=== PATIENT | female | born 2000 | race Caucasian/White ===

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

== ENCOUNTER 2018-01-29 16:04 | Emergency (ER) | payer BC ==
[~2018-01-29] VITALS: Ht 167.6 cm; Wt 69.0 kg
[~2018-01-29 16:04] MED LIST: ALPR-411 PO; LORA-741 PO; SODI1GRA11 PO; TRAZ50TA35 PO
[2018-01-29 16:11] VITALS: TEMP 36.8; Ht 167.6 cm; Wt 69.0 kg
[2018-01-29] MEDS ORDERED: SODIUM CHLORIDE 0.9% 1000ML 1,000 ML IV STA (17:16)
[2018-01-29] MEDS ORDERED: BCPILLS PO (17:27)
[2018-01-29] MEDS ORDERED: NITR-5 PO (17:27)
[2018-01-29] MEDS ORDERED: FLUC150T PO (17:27)
[2018-01-29] MEDS ORDERED: METR0.7527 PV (17:27)
[2018-01-29] MEDS ORDERED: SERT50TA PO (17:27)
[2018-01-29 17:36] LABS: BASO % 0.6 %; BASO ABS # 0.04 K/uL (0-0.2); EOS % 1.4 %; HEMATOCRIT 38.8 % (37-47); HEMOGLOBIN 12.6 g/dL (12.0-16.0); IG# 0.01 K/uL (0.00-0.02); LYMPH % 36.6 %; LYMPH ABS # 2.61 K/uL (1.2-3.4); MEAN CELL VOLUME 80.5 fL (80-100); MEAN CORPUSCULAR HEMOGLOBIN 26.1 pg (25-34); MEAN CORPUSCULAR HGB CONC 32.5 g/dl (32-36); MEAN PLATELET VOLUME 9.5 fL (7.4-10.4); MONO % 10.2 %; MONO ABS # 0.73 K/uL (0.11-0.59); NEUT % 51.1 %; NEUT ABS # 3.64 K/uL (1.4-6.5); PLATELET COUNT 255 K/uL (130-400); RED CELL DISTRIBUTION WIDTH CV 15.2 % (11.5-14.5); RED CELL DISTRIBUTION WIDTH SD 44.4 fL (36.4-46.3); WHITE BLOOD COUNT 7.13 K/uL (4.8-10.8)
[2018-01-29 17:50] LABS: BLOOD UREA NITROGEN 12 mg/dl (7-18); CALCIUM 9.2 mg/dl (8.5-10.1); CARBON DIOXIDE 27 mmol/L (21-32); CREATININE 0.87 mg/dl (0.60-1.20); GLUCOSE 84 mg/dl (70-99); LIPASE 195 U/L (73-393); POTASSIUM 3.9 mmol/L (3.5-5.1); SODIUM 138 mmol/L (136-145)
[2018-01-29 17:53] LABS: ALKALINE PHOSPHATASE 62 U/L (45-117); ALT/SGPT 18 U/L (12-78); AST/SGOT 13 U/L (15-37); TOTAL PROTEIN 7.9 gm/dl (6.4-8.2)
--- NOTE | 2018-01-29 19:03 | DIAGNOSTIC IMAGING REPORT ---
PELVIC COMPLETE NON OB, TRANSVAG-FEMALE PELVIS CLINICAL HISTORY: 17 years-old Female presenting with eval for TOA/cyst. TECHNIQUE: Real-time grayscale and color and spectral Doppler ultrasound imaging of the pelvis was performed first using a transabdominal probe and subsequently transvaginal for better characterization. COMPARISON: None. FINDINGS: Uterus: Normal. Anteverted. The uterus measures 7.1 x 3.3 x 4.4 cm. Endometrial stripe measures 5 mm in thickness. Endometrium fluid noted in the endometrial cavity.. Cervix normal. Right adnexa: Right ovary contains multiple prominent follicles. Right ovary measures 3.8 x 2.1 x 3.0 cm. Normal color Doppler flow and arterial and venous waveforms within the ovarian parenchyma. Left adnexa: Left ovary contains multiple prominent follicles. Left ovary measures 3.6 x 1.6 x 2.8 cm. Normal color Doppler flow and arterial and venous waveforms within the ovarian parenchyma. Other: Trace free fluid, likely physiologic. IMPRESSION: No ovarian torsion or significant abnormality within the pelvis. Trace free fluid is likely physiologic. Electronically signed by: Raman Portillo M.D. 01/29/2018 7:02 PM Dictated Date/Time: 01/29/2018 7:00 PM
[2018-01-29 20:01] VITALS: BP 121/67
[2018-01-29 20:04] VITALS: PULSE 75; O2SAT 96
--- NOTE | 2018-01-29 23:22 | EMERGENCY ROOM VISIT NOTE ---
History Report prepared by Heidi: Samy Roe Under the Supervision of: Dr. Eliseo Barnett M.D. First contact with patient: 17:07 Chief Complaint: ABNORMAL LABS Stated Complaint: HEADACHE, NAUSEA, STOMACH ACHE, DIZZINESS, CRAMPS History of Present Illness The patient is a 17 year old female who presents to the Emergency Room with complaints of worsening abdominal cramping in the lower abdomen for the past 2 weeks. She additionally notes that she was seen at [facility] three days ago, and they told her today that she had abnormal blood tests including a low iron and to go to the ED for evaluation. The patient is additionally complaining of nausea, light headedness, dizziness, and urinary frequency for the past two weeks. The patient states that she has not had her period since October, though she states that she takes control pills. When the patient was seen at [facility], she was given Macrobid and Diflucan for her urinary symptoms and a yeast infection. She did have a pelvic exam at [facility]. She denies any vaginal bleeding , chest pain, shortness of breath, and fever, though she states that she has felt warm. She notes that she is having dark stools but no black stools. The patient additionally notes that she is on Zoloft. Source of History: patient Onset: 2 weeks ago Position: abdomen Quality: cramping Timing: worsening Associated Symptoms: + nausea, No fevers, No chest pain, No SOB Note: Associated symptoms: Urinary frequency, light headedness, and dizziness. Review of Systems See HPI for pertinent positives & negatives. A total of 10 systems reviewed and were otherwise negative. Past Medical & Surgical Medical Problems: (1) No chronic problems Family History Diabetes mellitus Seizures Social History Smoking Status: Never Smoker Drug Use: none Marital Status: single Housing Status: lives with roommate Occupation Status: [employer] student Current/Historical Medications Scheduled Control Pills ( Control Pills), 1 TAB PO DAILY Metronidazole (Topical) (Metrogel), 5 GM PV HS Nitrofurantoin Monohyd Macrocr (Macrobid), 100 MG PO BID Sertraline (Zoloft), 50 MG PO DAILY Scheduled PRN Fluconazole (Diflucan), 150 MG PO UD PRN for PRN Allergies Coded Allergies: No Known Allergies (Unverified , 03/10/17) Physical Exam Vital Signs Date Time Temp Pulse Resp B/P (MAP) Pulse Ox O2 Delivery O2 Flow Rate FiO2 01/29/18 20:04 75 96 01/29/18 20:01 121/67 01/29/18 19:49 66 18 98 Room Air 01/29/18 19:34 66 100 01/29/18 19:31 118/74 01/29/18 19:19 72 99 01/29/18 19:07 123/75 01/29/18 18:08 68 16 117/74 98 Room Air 01/29/18 16:11 36.8 67 20 123/83 97 Room Air Physical Exam Constitutional: Vital signs reviewed. Eyes: Pupils are equal round reactive to light. Conjunctiva are noninjected. ENT: Pharynx is clear without erythema or exudate. Mucous membranes are moist. Neck supple without meningeal signs. Respiratory: Clear to auscultation bilaterally. Breath sounds are equal bilaterally. Cardiovascular: Regular rate and rhythm. No rubs or gallops. GI: Some lower abdominal tenderness and epigastric tenderness greater on the left side. No guarding. No CVA tenderness. Soft, nondistended. Bowel sounds are present. Musculoskeletal: No peripheral edema. No lower extremity tenderness. Integumentary: No cyanosis. Neurological: The patient is awake and alert. No focal deficits. Psychiatric: Normal affect. Medical Decision & Procedures ER Provider Diagnostic Interpretation: Radiology results as stated below per my review and the radiologist's interpretation: PELVIC COMPLETE NON OB, TRANSVAG-FEMALE PELVIS CLINICAL HISTORY: 17 years-old Female presenting with eval for TOA/cyst. TECHNIQUE: Real-time grayscale and color and spectral Doppler ultrasound imaging of the pelvis was performed first using a transabdominal probe and subsequently transvaginal for better characterization. COMPARISON: None. FINDINGS: Uterus: Normal. Anteverted. The uterus measures 7.1 x 3.3 x 4.4 cm. Endometrial stripe measures 5 mm in thickness. Endometrium fluid noted in the endometrial cavity.. Cervix normal. Right adnexa: Right ovary contains multiple prominent follicles. Right ovary measures 3.8 x 2.1 x 3.0 cm. Normal color Doppler flow and arterial and venous waveforms within the ovarian parenchyma. Left adnexa: Left ovary contains multiple prominent follicles. Left ovary measures 3.6 x 1.6 x 2.8 cm. Normal color Doppler flow and arterial and venous waveforms within the ovarian parenchyma. Other: Trace free fluid, likely physiologic. IMPRESSION: No ovarian torsion or significant abnormality within the pelvis. Trace free fluid is likely physiologic. Electronically signed by: Raman Portillo M.D. 01/29/2018 7:02 PM Dictated Date/Time: 01/29/2018 7:00 PM PELVIC COMPLETE NON OB, TRANSVAG-FEMALE PELVIS CLINICAL HISTORY: 17 years-old Female presenting with eval for TOA/cyst. TECHNIQUE: Real-time grayscale and color and spectral Doppler ultrasound imaging of the pelvis was performed first using a transabdominal probe and subsequently transvaginal for better characterization. COMPARISON: None. FINDINGS: Uterus: Normal. Anteverted. The uterus measures 7.1 x 3.3 x 4.4 cm. Endometrial stripe measures 5 mm in thickness. Endometrium fluid noted in the endometrial cavity.. Cervix normal. Right adnexa: Right ovary contains multiple prominent follicles. Right ovary measures 3.8 x 2.1 x 3.0 cm. Normal color Doppler flow and arterial and venous waveforms within the ovarian parenchyma. Left adnexa: Left ovary contains multiple prominent follicles. Left ovary measures 3.6 x 1.6 x 2.8 cm. Normal color Doppler flow and arterial and venous waveforms within the ovarian parenchyma. Other: Trace free fluid, likely physiologic. IMPRESSION: No ovarian torsion or significant abnormality within the pelvis. Trace free fluid is likely physiologic. Electronically signed by: Raman Portillo M.D. 01/29/2018 7:02 PM Dictated Date/Time: 01/29/2018 7:00 PM Laboratory Results 01/29/18 17:25 Red Blood Count 4.82, Mean Corpuscular Volume 80.5, Mean Corpuscular Hemoglobin 26.1, Mean Corpuscular Hemoglobin Concent 32.5, Mean Platelet Volume 9.5, Neutrophils (%) (Auto) 51.1, Lymphocytes (%) (Auto) 36.6, Monocytes (%) (Auto) 10.2, Eosinophils (%) (Auto) 1.4, Basophils (%) (Auto) 0.6, Neutrophils # (Auto ) 3.64, Lymphocytes # (Auto) 2.61, Monocytes # (Auto) 0.73, Eosinophils # (Auto ) 0.10, Basophils # (Auto) 0.04 01/29/18 17:25 Test 01/29/18 17:25 01/29/18 17:30 White Blood Count 7.13 K/uL (4.8-10.8) Red Blood Count 4.82 M/uL (4.2-5.4) Hemoglobin 12.6 g/dL (12.0-16.0) Hematocrit 38.8 % (37-47) Mean Corpuscular Volume 80.5 fL (80-100) Mean Corpuscular Hemoglobin 26.1 pg (25-34) Mean Corpuscular Hemoglobin Concent 32.5 g/dl (32-36) Platelet Count 255 K/uL (130-400) Mean Platelet Volume 9.5 fL (7.4-10.4) Neutrophils (%) (Auto) 51.1 % Lymphocytes (%) (Auto) 36.6 % Monocytes (%) (Auto) 10.2 % Eosinophils (%) (Auto) 1.4 % Basophils (%) (Auto) 0.6 % Neutrophils # (Auto) 3.64 K/uL (1.4-6.5) Lymphocytes # (Auto) 2.61 K/uL (1.2-3.4) Monocytes # (Auto) 0.73 K/uL (0.11-0.59) Eosinophils # (Auto) 0.10 K/uL (0-0.5) Basophils # (Auto) 0.04 K/uL (0-0.2) RDW Standard Deviation 44.4 fL (36.4-46.3) RDW Coefficient of Variation 15.2 % (11.5-14.5) Immature Granulocyte % (Auto) 0.1 % Immature Granulocyte # (Auto) 0.01 K/uL (0.00-0.02) Anion Gap 6.0 mmol/L (3-11) Est Creatinine Clear Calc Drug Dose 97.3 ml/min Estimated GFR () 111.9 Estimated GFR (Non- 96.6 BUN/Creatinine Ratio 14.0 (10-20) Calcium Level 9.2 mg/dl (8.5-10.1) Iron Level 31 mcg/dl (35-150) Total Bilirubin 0.3 mg/dl (0.2-1) Direct Bilirubin < 0.1 mg/dl (0-0.2) Aspartate Amino Transf (AST/SGOT) 13 U/L (15-37) Alanine Aminotransferase (ALT/SGPT) 18 U/L (12-78) Alkaline Phosphatase 62 U/L (45-117) Total Protein 7.9 gm/dl (6.4-8.2) Albumin 4.0 gm/dl (3.4-5.0) Lipase 195 U/L (73-393) Urine Color YELLOW Urine Appearance CLEAR (CLEAR) Urine pH 6.5 (4.5-7.5) Urine Specific [place] 1.022 (1.000-1.030) Urine Protein NEG (NEG) Urine Glucose (UA) NEG (NEG) Urine Ketones NEG (NEG) Urine Occult Blood NEG (NEG) Urine Nitrite NEG (NEG) Urine Bilirubin NEG (NEG) Urine Urobilinogen NEG (NEG) Urine Leukocyte Esterase NEG (NEG) Urine Test NEG (NEG) Laboratory results as reviewed by me. Medications Administered Medications (Trade) Dose Ordered Sig/Jorge Route Start Time Stop Time Status Last Admin Dose Admin Sodium Chloride 1,000 ml @ 999 mls/hr Q1H1M STAT IV 01/29/18 17:16 01/29/18 18:16 DC 01/29/18 17:33 999 MLS/HR ED Course 1707: The patient was evaluated in room A6. A complete history and physical exam was performed. 1716: Sodium Chloride 1000 ml @ 999 mls/hr IV 1911: I reevaluated the patient, and I discussed the test results with her. She said she had a pelvic exam already at [facility], so she did not require one here. The patient will be discharged home. Medical Decision This is a 17-year-old female who presents with lower abdominal pain and lightheadedness. Differential diagnosis includes UTI, ovarian cyst, endometriosis, irritable bowel syndrome, inflammatory bowel disease. I did perform a limited focused review of portions of the patient's old chart on the electronic medical record. The patient has had no recent pertinent visits to this hospital. I did evaluate the patient as noted above. The patient is having 2 weeks of abdominal pain with lightheadedness. She was seen at [facility] and told she had abnormal blood work. She is not sure exactly what was abnormal but she does know she had a low iron level and may be anemia. She was told about her blood tests today and told to come to the ER for further evaluation. She does have some lower abdominal tenderness but she does not pinpoint any one spot. Appendicitis seems very unlikely given she has had symptoms for 2 weeks. She is currently on Macrobid for a UTI. Her urine analysis and urine test are both negative. IV access was established. I did order and review the patient's blood work as noted in the electronic medical record. She is not anemic. Her white blood cell count is not elevated. Serum iron is slightly low. I did order an ultrasound of the pelvis. I did review the images myself as well as the radiology report as described above. No acute abnormality was found. I did treat the patient with normal saline IV. I did discuss the test results with the patient. I did recommend close follow-up with [facility] and specialty referrals as needed. Medication Reconcilliation Current Medication List: was personally reviewed by me Blood Pressure Screening Patient's blood pressure: Normal blood pressure Impression Primary Impression: Lower abdominal pain Additional Impression: Light headedness Scribe Attestation The scribe's documentation has been prepared under my direct and personally reviewed by me in its entirety. I confirm that the note above accurately reflects all work, treatment, procedures, and medical decision making performed by me. Departure Information Dispostion Home / Self-Care Referrals No Doctor, Assigned (PCP) Forms HOME CARE DOCUMENTATION FORM, IMPORTANT VISIT INFORMATION, WORK / SCHOOL INSTRUCTIONS Patient Instructions My [facility] Additional Instructions You have been examined and treated today on an emergency basis only. This is not a substitute for, or an effort to provide, complete comprehensive medical care. It is impossible to recognize and treat all injuries or illnesses in a single emergency department visit. It is therefore important that you follow up closely with [facility]. Call as soon as possible for an appointment. Return for worsening symptoms or if you develop fever, vomiting, or any other concerning symptoms. Problem Qualifiers
== END 2018-01-29 20:13 | disposition home or self-care (01) ==
LOC: C.EDB 16:06 → C.EDA 20:13
DX: R10.30 Lower abdominal pain, unspecified (principal); R42 Dizziness and giddiness; R11.0 Nausea

== ENCOUNTER 2018-02-10 18:29 | Emergency (ER) | payer BC ==
[~2018-02-10] VITALS: Ht 167.6 cm; Wt 69.4 kg
[~2018-02-10 18:29] MED LIST changes: -ALPR-411 PO; +BCPILLS PO; +FLUC150T PO; -LORA-741 PO; +METR0.7527 PV; +NITR-5 PO; +SERT50TA PO; -SODI1GRA11 PO; -TRAZ50TA35 PO
[2018-02-10 18:33] VITALS: TEMP 36.7; Ht 167.6 cm; Wt 69.4 kg
[2018-02-10] MEDS ORDERED: KETOROLAC TROMETHAMINE 30 MG/ML VIAL IV STA (20:14)
[2018-02-10] MEDS ORDERED: SODIUM CHLORIDE 0.9% 1000ML 1,000 ML IV STA (20:14)
[2018-02-10] MEDS ORDERED: ONDANSETRON INJ 2 MG/ML 2 ML VIAL IV STA ×2 (20:14→22:38)
[2018-02-10 20:24] LABS: BASO % 0.4 %; BASO ABS # 0.03 K/uL (0-0.2); EOS % 1.8 %; EOS ABS # 0.13 K/uL (0-0.5); HEMATOCRIT 37.2 % (37-47); IG# 0.01 K/uL (0.00-0.02); LYMPH % 38.1 %; LYMPH ABS # 2.68 K/uL (1.2-3.4); MEAN CELL VOLUME 79.8 fL (80-100); MEAN CORPUSCULAR HEMOGLOBIN 25.8 pg (25-34); MEAN CORPUSCULAR HGB CONC 32.3 g/dl (32-36); MEAN PLATELET VOLUME 9.2 fL (7.4-10.4); MONO % 12.5 %; MONO ABS # 0.88 K/uL (0.11-0.59); NEUT % 47.1 %; PLATELET COUNT 260 K/uL (130-400); RED CELL DISTRIBUTION WIDTH CV 15.1 % (11.5-14.5); RED CELL DISTRIBUTION WIDTH SD 43.5 fL (36.4-46.3); WHITE BLOOD COUNT 7.03 K/uL (4.8-10.8)
[2018-02-10 20:32] LABS: ALBUMIN 3.9 gm/dl (3.4-5.0); ALT/SGPT 17 U/L (12-78); AST/SGOT 12 U/L (15-37); BLOOD UREA NITROGEN 11 mg/dl (7-18); CARBON DIOXIDE 26 mmol/L (21-32); GLUCOSE 75 mg/dl (70-99); LIPASE 206 U/L (73-393); POTASSIUM 3.4 mmol/L (3.5-5.1); SODIUM 139 mmol/L (136-145)
[2018-02-10 20:34] LABS: ALKALINE PHOSPHATASE 61 U/L (45-117); TOTAL PROTEIN 7.8 gm/dl (6.4-8.2)
--- NOTE | 2018-02-10 22:47 | EMERGENCY ROOM VISIT NOTE ---
History First contact with patient: 19:53 Chief Complaint: ABDOMINAL PAIN Stated Complaint: SEVERE LOWER RIGHT ABD PAIN,NAUSEA Nursing Triage Summary: Patient ambulatory to triage with an upright and steady gait, states "For the last 4 weeks I have had really bad stomach pain. Recently I have really bad stabbing pain in my right lower abdomen. That pain started yesterday. I have nausea and headaches." Patient reports seen here in the ER about 2 weeks ago for similar symptoms. Patient was evaluated by [employer] today and was sent back to the ER. History of Present Illness The patient is a 17 year old female who presents to the Emergency Room with complaints of worsening right lower quadrant pain. The patient reports that she has had this discomfort now for over 2 weeks. She was seen here on 01/29/18 with similar symptoms. Her workup was normal. She was referred back to [facility]. She was able to call them before spring, but no follow-up appointment was scheduled. The patient now reports that the pain is worsened with movement and walking. It does not radiate into the back. The patient denies any urinary symptoms. She reports that her stool looks darker, but does not appear to be dark red. She reports that it has somewhat of a greenish hue. She denies any personal or family history of GI disease. She denies history of gallbladder disease, pancreatitis or GERD/peptic ulcers. She rates her discomfort an 8 out of 10. The patient denies . Last menstruation was approximately 2 weeks ago. She is currently on oral contraceptives. She denies any back pain or pain radiating into the legs, and denies any lower extremity swelling, paresthesias or numbness. She denies any other recent infections, fever or chills. Last coitus was approximately 1.5 months ago, and was nonpainful. The patient had a pelvic exam performed approximately 2 months ago that was also normal. The patient is not concerned for STI. Review of Systems HEENT: Denies dizziness, visual problems, hearing loss, tinnitus. Denies difficulty swallowing or oral lesions. PULMONARY: Denies cough, shortness of breath, sputum production or hemoptysis. CARDIOVASCULAR: Denies chest pain, palpitations, dyspnea on exertion, orthopnea or peripheral edema. GASTROINTESTINAL: Denies diarrhea or constipation. The patient reports notable nausea without vomiting. Otherwise see HPI. GENITOURINARY: Denies dysuria, frequency, urgency or nocturia. NEUROLOGIC: Denies history of epilepsy, CVA, TIA or chronic headaches. MUSCULOSKELETAL: Denies history of joint tenderness/swelling. SKIN: Denies rashes or lesions. PSYCHIATRIC: Denies history of depression or mental illness. HEMATOLOGIC: No ecchymosis or petechiae noted. ENDOCRINE: Denies history of diabetes or thyroid disorders. Past Medical/Surgical History Medical Problems: (1) No chronic problems (2) POTS (postural orthostatic tachycardia syndrome) Surgical Problems: (1) No history of previous surgery Family History Diabetes mellitus Seizures Social History Smoking Status: Never Smoker Alcohol Use: occasionally Drug Use: none Marital Status: single Housing Status: lives with roommate Occupation Status: [employer] student Current/Historical Medications Scheduled Control Pills ( Control Pills), 1 TAB PO DAILY Sertraline (Zoloft), 50 MG PO DAILY Physical Exam Vital Signs Date Time Temp Pulse Resp B/P (MAP) Pulse Ox O2 Delivery O2 Flow Rate FiO2 02/10/18 22:04 76 20 121/71 99 Room Air 02/10/18 18:33 36.7 82 20 112/79 98 Room Air Physical Exam CONSTITUTIONAL: Healthy and well nourished. Alert and oriented X 3 with positive affect. Patient appears in mild to moderate discomfort. HEENT: Normocephalic, atraumatic. Pupils equal, round and reactive. No scleral icterus or conjunctival injection/pallor. NECK: Full active range of motion without discomfort. RESPIRATORY: Clear to auscultation bilaterally with no wheezing, crackles, rhonchi or stridor. CARDIOVASCULAR: Regular rate and rhythm with no murmurs, rubs or gallops. GASTROINTESTINAL: Bowel sounds present in all quadrants. Patient has a positive McBurney's point tenderness. Positive Rovsing sign. Positive heeltap. Mildly positive psoas sign. Negative CVA tenderness. No abdominal rigidity, guarding or rebound. GENITOURINARY: With a female nurse subcontract administrator present, speculum and bimanual pelvic exam were performed. Normal external genitalia. Speculum exam does not show any vaginal canal erythema or edema. No abnormal drainage. Cervical office is closed without any significant erythema or edema. Bimanual exam shows no adnexal tenderness or palpable adnexal masses. Negative cervical motion tenderness. MUSCULOSKELETAL: Full range of motion of all joints without discomfort. INTEGUMENTARY: No rash or other significant dermatologic conditions noted. HEMATOLOGIC: No ecchymosis or petechiae noted. NEUROLOGIC: No focal neurologic deficits noted. Medical Decision & Procedures ER Provider Diagnostic Interpretation: Enhanced CT of the abdomen and pelvis was ordered and is pending at the time of dictation and transfer of care to Yoav Goldman PA-C at change of shift. Laboratory Results 02/10/18 20:05 Red Blood Count 4.66, Mean Corpuscular Volume 79.8, Mean Corpuscular Hemoglobin 25.8, Mean Corpuscular Hemoglobin Concent 32.3, Mean Platelet Volume 9.2, Neutrophils (%) (Auto) 47.1, Lymphocytes (%) (Auto) 38.1, Monocytes (%) (Auto) 12.5, Eosinophils (%) (Auto) 1.8, Basophils (%) (Auto) 0.4, Neutrophils # (Auto ) 3.30, Lymphocytes # (Auto) 2.68, Monocytes # (Auto) 0.88, Eosinophils # (Auto ) 0.13, Basophils # (Auto) 0.03 02/10/18 20:05 Test 02/10/18 19:55 02/10/18 20:05 Urine Color YELLOW Urine Appearance CLEAR (CLEAR) Urine pH 6.0 (4.5-7.5) Urine Specific [place] 1.029 (1.000-1.030) Urine Protein NEG (NEG) Urine Glucose (UA) NEG (NEG) Urine Ketones NEG (NEG) Urine Occult Blood NEG (NEG) Urine Nitrite NEG (NEG) Urine Bilirubin NEG (NEG) Urine Urobilinogen NEG (NEG) Urine Leukocyte Esterase NEG (NEG) Urine Test NEG (NEG) White Blood Count 7.03 K/uL (4.8-10.8) Red Blood Count 4.66 M/uL (4.2-5.4) Hemoglobin 12.0 g/dL (12.0-16.0) Hematocrit 37.2 % (37-47) Mean Corpuscular Volume 79.8 fL (80-100) Mean Corpuscular Hemoglobin 25.8 pg (25-34) Mean Corpuscular Hemoglobin Concent 32.3 g/dl (32-36) Platelet Count 260 K/uL (130-400) Mean Platelet Volume 9.2 fL (7.4-10.4) Neutrophils (%) (Auto) 47.1 % Lymphocytes (%) (Auto) 38.1 % Monocytes (%) (Auto) 12.5 % Eosinophils (%) (Auto) 1.8 % Basophils (%) (Auto) 0.4 % Neutrophils # (Auto) 3.30 K/uL (1.4-6.5) Lymphocytes # (Auto) 2.68 K/uL (1.2-3.4) Monocytes # (Auto) 0.88 K/uL (0.11-0.59) Eosinophils # (Auto) 0.13 K/uL (0-0.5) Basophils # (Auto) 0.03 K/uL (0-0.2) RDW Standard Deviation 43.5 fL (36.4-46.3) RDW Coefficient of Variation 15.1 % (11.5-14.5) Immature Granulocyte % (Auto) 0.1 % Immature Granulocyte # (Auto) 0.01 K/uL (0.00-0.02) Anion Gap 7.0 mmol/L (3-11) Est Creatinine Clear Calc Drug Dose 94.1 ml/min Estimated GFR () 107.4 Estimated GFR (Non- 92.7 BUN/Creatinine Ratio 12.2 (10-20) Calcium Level 9.0 mg/dl (8.5-10.1) Total Bilirubin 0.2 mg/dl (0.2-1) Direct Bilirubin < 0.1 mg/dl (0-0.2) Aspartate Amino Transf (AST/SGOT) 12 U/L (15-37) Alanine Aminotransferase (ALT/SGPT) 17 U/L (12-78) Alkaline Phosphatase 61 U/L (45-117) Total Protein 7.8 gm/dl (6.4-8.2) Albumin 3.9 gm/dl (3.4-5.0) Lipase 206 U/L (73-393) The above labs were reviewed and are grossly normal. Urinalysis is unremarkable with a negative urine test. Medications Administered Medications (Trade) Dose Ordered Sig/Jorge Route Start Time Stop Time Status Last Admin Dose Admin Ketorolac Tromethamine (Toradol Inj) 30 mg NOW STAT IV 02/10/18 20:14 02/10/18 20:16 DC 02/10/18 20:30 30 MG Sodium Chloride 1,000 ml @ 999 mls/hr Q1H1M STAT IV 02/10/18 20:14 02/10/18 21:14 DC 02/10/18 20:30 999 MLS/HR Ondansetron HCl (Zofran Inj) 4 mg NOW STAT IV 02/10/18 20:14 02/10/18 20:16 DC 02/10/18 20:30 4 MG ED Course Patient history and physical exam were performed. Nurse's notes were reviewed. Vital signs were reviewed and were normal. I also reviewed documentation, lab work and other workup findings from her ED visit 13/12/17. Lab work was normal. Pelvic exam was not performed on that visit. Pelvic ultrasound was normal. I did suggest repeating a pelvic exam, and perform an enhanced CT of the abdomen and pelvis, and the patient was in agreement. IV access was established, and labs were drawn. The patient was hydrated with normal saline, and received IV morphine, Toradol and Zofran for pain. Pelvic exam was benign. Review of labs shows no acute abnormalities. The patient has no leukocytosis. LFTs and lipase are normal. Electrolytes are normal. Urinalysis is also normal with negative urine test. The patient was tolerating oral contrast, and refused any further analgesics or antiemetics. Enhanced CT of the abdomen and pelvis was ordered and pending at the time of transfer of care to Yoav Goldman PA-C at change of shift. Please see his dictation for further treatment and final disposition. At the time of transfer of care, the patient reported that she was getting mildly nauseated, and was administered Zofran 4 mg IVP before undergoing her CT studies. Medical Decision Patient presents with complaint of right lower quadrant abdominal pain. The patient was evaluated here 12 days ago with normal lab work and pelvic ultrasound studies. At this point I do not suspect abnormal gynecological etiologies. I am concerned for possible GI issues such as Crohn's disease. Urinalysis is not consistent with UTI, and the patient does not have any CVA tenderness to suggest pyelonephritis. Patient denies any other prior significant gynecological history to suggest endometriosis. I do not suspect ovarian torsion. The patient has had this discomfort now for the past 2 months and is similar in character. Blood Pressure Screening Patient's blood pressure: Normal blood pressure Impression Primary Impression: Right lower quadrant abdominal pain Departure Information Referrals [facility] (PCP) Patient Instructions My [facility]
[2018-02-10] MEDS ORDERED: OPTIRAY 320 IV PRN (23:15)
[2018-02-11 00:07] VITALS: BP 117/74; PULSE 67; O2SAT 100
--- NOTE | 2018-02-11 00:57 | EMERGENCY ROOM VISIT NOTE ---
ED Visit Note First contact with patient: 22:32 Patient care was assumed from Mac Barrios PA-C, at the time of shift change. Please see Mr. Barrios's dictation for full history of present illness and emergency department course outside of this note. Essentially the patient has ongoing abdominal discomfort, primarily in the right lower quadrant, for roughly the past month. She has had ultrasound and pelvic exams performed. At the time of shift change a CT of the abdomen and pelvis with IV and oral contrast was pending. CT returned as below: Preliminary Findings Only See Final Report For Complete Findings CT ABDOMEN & PELVIS With Contrast: No acute abnormality in the abdomen or pelvis. Normal appendix. No bowel obstruction or inflammation. Umbilical piercing noted. Mildly prominent mesenteric lymph nodes are nonspecific but may be reactive. On reevaluation the patient continues to appear nontoxic. She has faint right lower quadrant tenderness on palpation, but certainly is without rebound or guarding. No CVA tenderness was appreciated. The patient has been given pain medication while here in the treatment, and was very comfortable overall. The patient and I had a lengthy discussion regarding her findings today. She does appear well for discharge home. She likely needs follow-up with DISH ROOM WORKER and GI, and she indicated that she would like to do this back home. She is going to try to make an appointment for the , and this seems reasonable. The patient was certainly invited back to the ER with any new, worsening, or concerning symptoms. Current/Historical Medications Scheduled Control Pills ( Control Pills), 1 TAB PO DAILY Sertraline (Zoloft), 50 MG PO DAILY Allergies Coded Allergies: No Known Allergies (Unverified , 02/10/18) Vital Signs Date Time Temp Pulse Resp B/P (MAP) Pulse Ox O2 Delivery O2 Flow Rate FiO2 02/11/18 00:07 67 18 117/74 100 02/10/18 23:12 70 18 121/80 99 Room Air 02/10/18 22:04 76 20 121/71 99 Room Air 02/10/18 18:33 36.7 82 20 112/79 98 Room Air Laboratory Results 02/10/18 20:05 Red Blood Count 4.66, Mean Corpuscular Volume 79.8, Mean Corpuscular Hemoglobin 25.8, Mean Corpuscular Hemoglobin Concent 32.3, Mean Platelet Volume 9.2, Neutrophils (%) (Auto) 47.1, Lymphocytes (%) (Auto) 38.1, Monocytes (%) (Auto) 12.5, Eosinophils (%) (Auto) 1.8, Basophils (%) (Auto) 0.4, Neutrophils # (Auto ) 3.30, Lymphocytes # (Auto) 2.68, Monocytes # (Auto) 0.88, Eosinophils # (Auto ) 0.13, Basophils # (Auto) 0.03 02/10/18 20:05 Test 02/10/18 19:55 02/10/18 20:05 Urine Color YELLOW Urine Appearance CLEAR (CLEAR) Urine pH 6.0 (4.5-7.5) Urine Specific [place] 1.029 (1.000-1.030) Urine Protein NEG (NEG) Urine Glucose (UA) NEG (NEG) Urine Ketones NEG (NEG) Urine Occult Blood NEG (NEG) Urine Nitrite NEG (NEG) Urine Bilirubin NEG (NEG) Urine Urobilinogen NEG (NEG) Urine Leukocyte Esterase NEG (NEG) Urine Test NEG (NEG) White Blood Count 7.03 K/uL (4.8-10.8) Red Blood Count 4.66 M/uL (4.2-5.4) Hemoglobin 12.0 g/dL (12.0-16.0) Hematocrit 37.2 % (37-47) Mean Corpuscular Volume 79.8 fL (80-100) Mean Corpuscular Hemoglobin 25.8 pg (25-34) Mean Corpuscular Hemoglobin Concent 32.3 g/dl (32-36) Platelet Count 260 K/uL (130-400) Mean Platelet Volume 9.2 fL (7.4-10.4) Neutrophils (%) (Auto) 47.1 % Lymphocytes (%) (Auto) 38.1 % Monocytes (%) (Auto) 12.5 % Eosinophils (%) (Auto) 1.8 % Basophils (%) (Auto) 0.4 % Neutrophils # (Auto) 3.30 K/uL (1.4-6.5) Lymphocytes # (Auto) 2.68 K/uL (1.2-3.4) Monocytes # (Auto) 0.88 K/uL (0.11-0.59) Eosinophils # (Auto) 0.13 K/uL (0-0.5) Basophils # (Auto) 0.03 K/uL (0-0.2) RDW Standard Deviation 43.5 fL (36.4-46.3) RDW Coefficient of Variation 15.1 % (11.5-14.5) Immature Granulocyte % (Auto) 0.1 % Immature Granulocyte # (Auto) 0.01 K/uL (0.00-0.02) Anion Gap 7.0 mmol/L (3-11) Est Creatinine Clear Calc Drug Dose 94.1 ml/min Estimated GFR () 107.4 Estimated GFR (Non- 92.7 BUN/Creatinine Ratio 12.2 (10-20) Calcium Level 9.0 mg/dl (8.5-10.1) Total Bilirubin 0.2 mg/dl (0.2-1) Direct Bilirubin < 0.1 mg/dl (0-0.2) Aspartate Amino Transf (AST/SGOT) 12 U/L (15-37) Alanine Aminotransferase (ALT/SGPT) 17 U/L (12-78) Alkaline Phosphatase 61 U/L (45-117) Total Protein 7.8 gm/dl (6.4-8.2) Albumin 3.9 gm/dl (3.4-5.0) Lipase 206 U/L (73-393) Medications Administered Medications (Trade) Dose Ordered Sig/Jorge Route Start Time Stop Time Status Last Admin Dose Admin Ketorolac Tromethamine (Toradol Inj) 30 mg NOW STAT IV 02/10/18 20:14 02/10/18 20:16 DC 02/10/18 20:30 30 MG Sodium Chloride 1,000 ml @ 999 mls/hr Q1H1M STAT IV 02/10/18 20:14 02/10/18 21:14 DC 02/10/18 20:30 999 MLS/HR Ondansetron HCl (Zofran Inj) 4 mg NOW STAT IV 02/10/18 20:14 02/10/18 20:16 DC 02/10/18 20:30 4 MG Ondansetron HCl (Zofran Inj) 4 mg NOW STAT IV 02/10/18 22:38 02/10/18 22:39 DC 02/10/18 22:38 4 MG Departure Information Impression Primary Impression: Right lower quadrant abdominal pain Dispostion Home / Self-Care Condition FAIR Referrals [facility] (PCP) Forms HOME CARE DOCUMENTATION FORM, IMPORTANT VISIT INFORMATION Patient Instructions My [facility] Additional Instructions You were seen and evaluated today on an emergency basis only. This is not a substitute for, or an effort to provide, complete comprehensive medical care. It is not possible to recognize and treat all injuries or illnesses in a single emergency department visit. For this reason it is recommended that you followup with your primary care physician this week for recheck of your condition. We recommend that you follow with your DISH ROOM WORKER and possibly GI for ongoing care and evaluation. For baseline pain relief you may alternate ibuprofen and acetaminophen every 4 hours for pain control. Take 600 mg ibuprofen (Advil) and then 4 hours later take 1000 mg acetaminophen (Tylenol). Do not take more than 3000 mg acetaminophen in a single day. Drink plenty of fluids and remain well-hydrated You are welcome to return to the emergency department anytime with new, worsening, or concerning symptoms.
--- NOTE | 2018-02-11 07:19 | DIAGNOSTIC IMAGING REPORT ---
ABDOMEN AND PELVIS CT WITH IV AND ORAL CONTRAST CT DOSE: 328.46 mGy.cm HISTORY: Right lower quadrant abdominal pain. TECHNIQUE: Multiaxial CT images of the abdomen and pelvis were performed following the use of intravenous and oral contrast. A dose lowering technique was utilized adhering to the principles of ALARA. COMPARISON STUDY: None. FINDINGS: The lung bases are clear. The liver, spleen, gallbladder, pancreas, kidneys, and adrenal glands are within normal limits. No bowel wall thickening or obstruction. The pelvic organs are unremarkable. No suspicious lytic or blastic osseous lesions. Normal appendix. IMPRESSION: 1. Normal appendix. 2. No bowel wall thickening or obstruction. Electronically signed by: Gurwinder Granados M.D. 02/11/2018 7:18 AM Dictated Date/Time: 02/11/2018 7:12 AM
== END 2018-02-11 00:08 | disposition home or self-care (01) ==
LOC: C.EDB 18:30 → C.EDC 02-11 00:08
DX: R10.31 Right lower quadrant pain (principal); Z79.3 Long term (current) use of hormonal contraceptives; Z86.79 Personal history of other diseases of the circulatory system; Z83.3 Family history of diabetes mellitus; Z82.0 Family history of epilepsy and other diseases of the nervous system